=== PATIENT | female | born 1990 | race African-American/Black ===

== ENCOUNTER 2018-11-30 22:01 | Emergency (ER) | payer OTHER ==
[~2018-11-30] VITALS: Ht 165.1 cm; Wt 65.9 kg
[~2018-11-30 22:01] MED LIST: NOCURR
[2018-11-30 22:10] VITALS: BP 148/94
== END 2018-11-30 23:00 | disposition left against medical advice (07) ==
LOC: EMS 22:02
DX: Z00.8 Encounter for other general examination (principal); Z53.21 Procedure and treatment not carried out due to patient leaving prior to being seen by health care provider

== ENCOUNTER 2019-06-19 07:34 | Emergency (ER) | payer MEDICAID, OTHER ==
[~2019-06-19] VITALS: Ht 162.6 cm; Wt 143.0 kg
[2019-06-19 09:00] LABS: BASOPHILS % (AUTO) 0.2 % (0.0-2.0); EOSINOPHILS % (AUTO) 0.1 % (1.0-6.0); HEMOGLOBIN 12.5 g/dL (12.0-16.0); LYMPHOCYTES # (AUTO) 0.6 K/uL (1.0-4.8); LYMPHOCYTES % (AUTO) 3.7 % (22.0-44.0); MEAN CORPUSCULAR HEMOGLOBIN 31.7 pg (26.0-34.0); MEAN CORPUSCULAR HGB CONC 32.7 G/dL (31.0-37.0); MEAN CORPUSCULAR VOLUME 97 fL (80-100); MONOCYTES # (AUTO) 0.6 K/uL (0.1-1.0); MONOCYTES % (AUTO) 3.8 % (2.0-9.0); NEUTROPHILS # (AUTO) 13.8 K/uL (1.8-7.7); PLATELET COUNT (AUTO) 344 K/uL (150-450); RED BLOOD CELL COUNT(AUTO) 3.93 MIL/uL (4.00-5.20); RED CELL DISTRIBUTION WIDTH 12.8 % (11.5-14.5)
[2019-06-19 09:01] LABS: NEUTROPHILS % (AUTO) 92.2 % (40.0-70.0)
[2019-06-19 09:08] LABS: ANION GAP 7 mmol/L (8-16); CALCIUM, TOTAL 8.8 mg/dL (8.8-10.5); CARBON DIOXIDE 27 mmol/L (22-29); CHLORIDE 99 mmol/L (98-107); CREATININE 0.71 mg/dL (0.60-1.30); GLOMERULAR FILTR. RATE CALC > 60 mL/min (>60); GLUCOSE,RANDOM 109 mg/dL (70-110); POTASSIUM 3.8 mmol/L (3.5-5.1); SODIUM SERUM 133 mmol/L (136-145); UREA NITROGEN, BLOOD 9 mg/dL (7-18)
[2019-06-19 09:28] LABS: ALANINE AMINOTRANSFERASE 29 U/L (12-78); ALBUMIN 3.9 g/dL (3.4-5.0); ALKALINE PHOSPHATASE 69 U/L (46-116); ASPARTATE AMINOTRANSFERASE 21 U/L (15-37); BILIRUBIN,TOTAL 0.8 mg/dL (0.1-1.0); HCG,QUANTITATIVE < 1 mIU/mL (0-6); TOTAL PROTEIN, SERUM 7.7 g/dL (6.4-8.2)
[2019-06-19 10:45] VITALS: BP 131/83
== END 2019-06-19 11:29 | disposition home or self-care (01) ==
LOC: EMS 07:34
DX: F32.9 Major depressive disorder, single episode, unspecified (principal); F15.90 Other stimulant use, unspecified, uncomplicated
CPT/HCPCS: 36415; 80053; 84702; 85025; 99284; G0480

== ENCOUNTER 2023-07-22 18:29 | Emergency (ER) | payer MEDICAID, OTHER ==
[~2023-07-22] VITALS: Ht 172.7 cm; Wt 545.5 kg
[2023-07-22 18:33] VITALS: TEMP 98.7
[2023-07-22] MEDS ORDERED: BUPR-562 PO (18:38)
[2023-07-22] MEDS ORDERED: ALBU18HF12 IH (18:38)
[2023-07-22] MEDS: PredniSONE 20 MG TABLET PO ONE (18:41)
[2023-07-22 18:42] VITALS: BP 137/95
[2023-07-22] MEDS: EPINEPHrine 1:1,000 [1 MG/ML] VIAL SQ ONE (18:42)
[2023-07-22 18:46] VITALS: PULSE 110; RESP 28; O2SAT 97
[2023-07-22] MEDS: ALBUTEROL SULFATE 2.5 MG/0.5 ML 5 ML NEB SOLUTION NEB ONE (18:56)
[2023-07-22] MEDS: IPRATROPIUM BROMIDE 0.5 MG/2.5 ML NEB SOLUTION NEB ONE (18:56)
[2023-07-22 19:01] VITALS: PULSE 102; RESP 22; O2SAT 99
[2023-07-22] MEDS: ALBUTEROL SULFATE HFA 90 MCG/PUFF 8 GM INHALER IH ONE ×2 (19:16→19:19)
[2023-07-22] MEDS ORDERED: PRED-554 PO (19:25)
[2023-07-22] MEDS ORDERED: GUAIFDM PO (19:25)
== END 2023-07-22 19:30 | disposition home or self-care (01) ==
LOC: EMS 18:31
DX: J45.901 Unspecified asthma with (acute) exacerbation (principal); R05.9 Cough, unspecified; Z88.1 Allergy status to other antibiotic agents; Z79.899 Other long term (current) drug therapy
CPT/HCPCS: 99283; 94640; J0171; J7512; Q9967; J3535